=== PATIENT | female | born 1975 | race Caucasian/White ===

== ENCOUNTER → 2018-07-26 | Outpatient (CLI) | payer OTHER ==
[~2018-07-26] MED LIST: BCP TD; CLARITIN D TAB1 TAB PO; PHENERGAN 25 TA25 MG PO; PRENATAL VITAMI1 TA5 PO; PROTONIX40 MG PO; XANAX0.5 MG PO; ZANTAC 150150 MG PO; ZANTAC150 MG PO
== END ==
LOC: MC.RAD 06-26 09:00
DX: Z12.31 Encounter for screening mammogram for malignant neoplasm of breast (principal)

== ENCOUNTER → 2021-08-10 | Outpatient (CLI) | payer OTHER | LOC: MC.RAD 07-15 09:15 | DX: Z12.31 Encounter for screening mammogram for malignant neoplasm of breast (principal) ==